=== PATIENT | male | born 1960 | race Caucasian/White ===

== ENCOUNTER → 2025-01-23 11:04 | Outpatient (REF) | payer MEDICARE, SELFPAY ==
[2025-01-23 12:38] LABS: Free T4 1.14 ng/dl (0.78-2.19)
[2025-01-23 12:52] LABS: TSH 7.41 uIU/ml (0.47-4.68)
== END ==
LOC: REG 11:04
PROVIDERS: ATTENDING PHYSICIAN Physician Assistant; FAMILY PHYSICIAN Family Medicine
DX: E06.3 Autoimmune thyroiditis (principal)
CPT/HCPCS: 36415; 84439; 84443

== ENCOUNTER → 2025-06-19 10:37 | Outpatient (REF) | payer MEDICARE, SELFPAY ==
[2025-06-19 12:22] LABS: TSH 6.42 uIU/ml (0.47-4.68)
== END ==
LOC: REG 10:37
PROVIDERS: ATTENDING PHYSICIAN Internal Medicine Endocrinology, Diabetes & Metabolism; FAMILY PHYSICIAN Family Medicine
DX: E06.3 Autoimmune thyroiditis (principal)
CPT/HCPCS: 36415; 84439; 84443